=== PATIENT | female | born 1985 | race Caucasian/White ===

== ENCOUNTER 2017-01-15 10:39 | Inpatient (IN) | payer OTHER ==
[~2017-01-15 10:39] MED LIST: cefTRIAXone (Rocephin) 1 gm Inj ONE
[2017-01-15 10:48] VITALS: BMI 27.6
[2017-01-15] MEDS ORDERED: Sodium Chloride 0.9% 1,000 ML IV STA ×2 (11:40)
[2017-01-15 14:22] LABS: ALB/GLOB RATIO 1.3 (1.0-2.1); ALBUMIN 3.9 g/dL (3.5-5.0); ALT/SGPT 40 U/L (9-52); AST/SGOT 27 U/L (14-36); BLOOD UREA NITROGEN 10 mg/dl (7-17); CALCIUM 8.8 mg/dL (8.4-10.2); GFR AFRICAN-AMERICAN > 60; GFR NON-AFRICAN AMERICAN 58
[2017-01-15] MEDS ORDERED: Oxycodone/Acetaminophen 5/325 mg Tab ONE (14:49)
[2017-01-16] MEDS: Sodium Chloride 0.9% 1,000 ML IV SCH ×5 (01:30→21:24)
[2017-01-16 07:21] LABS: HEMOGLOBIN 11.7 g/dL (12.0-16.0); MEAN CELL VOLUME 89.9 fl (81.0-99.0); MEAN CORPUSCULAR HEMOGLOBIN 30.9 pg (27.0-31.0); MEAN CORPUSCULAR HGB CONC 34.3 g/dL (33.0-37.0); PLATELET COUNT 197 K/uL (130-400); RBC 3.81 Mil/uL (3.80-5.20); WHITE BLOOD COUNT 15.4 K/uL (4.8-10.8)
[2017-01-16 07:22] LABS: BASO % 0.1 % (0.0-2.0); EOS % 0.1 % (0.0-4.0); LYMPH % 5.1 % (20.0-40.0); MEAN PLATELET VOLUME 8.6 fl (7.2-11.7); MONO % 10.7 % (0.0-10.0)
[2017-01-16 07:23] LABS: LYMPH # 0.8 K/uL (1.0-4.3); MONO # 1.6 K/uL (0.0-0.8); NEUT # 12.9 K/uL (1.8-7.0); NRBC % 0.1 % (0.0-0.0)
[2017-01-16 07:26] LABS: BANDS 4 % (0-2); LARGE PLATELETS PRESENT; LYMPHOCYTE 8 % (20-50); MONOCYTE 9 % (0-10); MYELOCYTE 1 % (0-0); NEUTROPHIL 78 % (42-75); PLATELET ESTIMATE NORMAL (NORMAL); TOTAL CELLS COUNTED 100
[2017-01-16 08:54] LABS: HEMOGLOBIN 10.8 g/dL (12.0-16.0); MEAN CELL VOLUME 90.2 fl (81.0-99.0); MEAN CORPUSCULAR HEMOGLOBIN 31.1 pg (27.0-31.0); MEAN CORPUSCULAR HGB CONC 34.5 g/dL (33.0-37.0); RBC 3.46 Mil/uL (3.80-5.20); RED CELL DISTRIBUTION WIDTH 12.9 % (11.5-14.5); WHITE BLOOD COUNT 14.1 K/uL (4.8-10.8)
[2017-01-16 08:58] LABS: ALB/GLOB RATIO 1.1 (1.0-2.1); ALBUMIN 3.1 g/dL (3.5-5.0); ALT/SGPT 40 U/L (9-52); AST/SGOT 25 U/L (14-36); BLOOD UREA NITROGEN 10 mg/dl (7-17); CALCIUM 7.6 mg/dL (8.4-10.2); GFR AFRICAN-AMERICAN > 60; GFR NON-AFRICAN AMERICAN > 60
[2017-01-16] MEDS: cefTRIAXone 2 GM in Sodium Chloride 0.9% 100 ML IVPB SCH (09:47)
--- NOTE | 2017-01-16 12:08 | CP.PCM.PN ---
Subjective - Date & Time of Evaluation Date of Evaluation: 01/16/17 Time of Evaluation: 11:30 - Subjective Subjective: Pt had fever yesterday , no fever this morning still with bilat flank paimn, epigastric pain refused to eat this am bec she is worried she might vomit again vomited several times prior to coming to ED sl dysuria and suprapubic pain denies abnormal vaginal discharge no CP no SOB Objective - Vital Signs/Intake and Output Vital Signs (last 24 hours): Temp Pulse Resp BP Pulse Ox 98.3 F 84 20 113/69 98 01/16/17 08:22 01/16/17 08:22 01/16/17 08:22 01/16/17 08:22 01/16/17 08:22 - Medications Medications: Current Medications Acetaminophen (Tylenol 325mg Tab) 325 mg PO Q4 PRN PRN Reason: Pain, Mild (1-3) Bisacodyl (Dulcolax) 10 mg VA ONCE ONE Stop: 01/16/17 12:08 Sodium Chloride (Sodium Chloride 0.9%) 1,000 mls @ 150 mls/hr IV .Q6H40M [facility] Stop: 01/17/17 01:17 Last Admin: 01/16/17 08:25 Dose: Not Given Ceftriaxone Sodium 2 gm/ (Sodium Chloride) 100 mls @ 100 mls/hr IVPB DAILY [facility] Last Admin: 01/16/17 09:47 Dose: 100 mls/hr Morphine Sulfate (Morphine) 2 mg IVP Q4 PRN PRN Reason: Pain, moderate (4-7) Ondansetron HCl (Zofran Inj) 4 mg IVP Q4 PRN PRN Reason: Nausea/Vomiting Pantoprazole Sodium (Protonix Inj) 40 mg IVP ONCE ONE Stop: 01/16/17 12:08 - Labs Labs: 01/16/17 06:00 01/16/17 06:00 - Constitutional Appears: No Acute Distress - Head Exam Head Exam: NORMAL INSPECTION, NORMOCEPHALIC - Eye Exam Eye Exam: EOMI, Normal appearance, PERRL Pupil Exam: NORMAL ACCOMODATION - ENT Exam ENT Exam: Mucous Membranes Moist, Normal External Ear Exam - Neck Exam Neck Exam: Full ROM. absent: Meningismus - Respiratory Exam Respiratory Exam: NORMAL BREATHING PATTERN. absent: Respiratory Distress - Cardiovascular Exam Cardiovascular Exam: REGULAR RHYTHM, +S1, +S2 - GI/Abdominal Exam GI & Abdominal Exam: Soft, Tenderness Additional comments: diffuse mild tenderness + flank tenderness - Extremities Exam Extremities Exam: Full ROM, Normal Capillary Refill. absent: Calf Tenderness, Pedal Edema - Back Exam Back Exam: CVA tenderness (L), CVA tenderness (R), Full ROM. absent: paraspinal tenderness, vertebral tenderness - Neurological Exam Neurological Exam: Alert, Awake, CN II-XII Intact, Oriented x3 Neuro motor strength exam: Left Upper Extremity: 5, Right Upper Extremity: 5, Left Lower Extremity: 5, Right Lower Extremity: 5 - Psychiatric Exam Psychiatric exam: Normal Affect, Normal Mood - Skin Skin Exam: Dry, Normal Color, Warm Assessment and Plan (1) Sepsis Status: Acute (2) Pyelonephritis Status: Acute (3) Abdominal pain Status: Acute (4) DVT prophylaxis Status: Acute - Assessment and Plan (Free Text) Assessment: 31 y/o lady came to the ED because of fever, vomiting and abdominal pain. She was seen at an Urgent care and was diagnosed to have UTI - was presribed Cipro however her sxs persisted so she came to the ED. (1) Sepsis sec to UTI?Pyelonephritis Status: Acute Pt came in septic with fever 103, tachycardic to 124 , WBC ct =15k with bands Urinalysis Blood c/s Urine c/s start IV ceftriaxone (2) Pyelonephritis Status: Acute pt has flank pain and some CVA tenderness (3) Abdominal pain Status: Acute Pt had N/V and abd pain , prob ses to Pyelo however need to r/o other etiology for abd pain CT of abdomen and Pelvis (4) DVT prophylaxis Status: Acute Lovenox
[2017-01-16] MEDS ORDERED: Chlorhexidine Gluconate 1 APPL/PKT TP ONE (12:10)
[2017-01-16] MEDS ORDERED: Iohexol 240 (50 ml) PO ONE (13:54)
[2017-01-16] MEDS ORDERED: Iohexol 300 100 ML IJ ONE (15:28)
[2017-01-16] MEDS ORDERED: Sodium Chloride 0.9% 50 ML IV ONE (15:29)
[2017-01-16 16:05] LABS: SQUAMOUS EPITHIAL 1 /hpf (0-5); URINE BACTERIA RARE (<OCC); URINE BILIRUBIN NEGATIVE (NEGATIVE); URINE BLOOD NEGATIVE (NEGATIVE); URINE CLARITY CLEAR (Clear); URINE COLOR YELLOW (YELLOW); URINE GLUCOSE (UA) NEG (Normal); URINE LEUKOCYTE ESTERASE MOD Leu/uL (Negative); URINE NITRATE NEGATIVE (NEGATIVE); URINE PROTEIN NEGATIVE (NEGATIVE); URINE UROBILINOGEN 0.2-1.0 mg/dL (0.2-1.0)
--- NOTE | 2017-01-16 17:58 | CT ---
EXAM: CT Abdomen and Pelvis With Intravenous Contrast CLINICAL HISTORY: 31 years old, female; Pain and signs and symptoms; Nausea and vomiting; Abdominal pain; Generalized; Patient HX: HX of urinary tract infection; Additional info: Abd pain TECHNIQUE: Axial computed tomography images of the abdomen and pelvis with intravenous contrast. This CT exam was performed using one or more of the following dose reduction techniques: automated exposure control, adjustment of the mA and/or kV according to patient size, and/or use of iterative reconstruction technique. Coronal and sagittal reformatted images were created and reviewed. CONTRAST: 90 mL of [id number] administered intravenously. EXAM DATE/TIME: 01/16/2017 1:54 PM COMPARISON: There are no prior studies for comparison. FINDINGS: Lower thorax: Heart size is normal. There is a very small pericardial effusion. There are bilateral pleural effusions right greater than left. There is airspace disease at the lung bases right greater than left. ABDOMEN: Liver: There is fatty infiltration of the liver. Gallbladder and bile ducts: Gallbladder is distended. Common bile duct is unremarkable. Pancreas: unremarkable Spleen: unremarkable Adrenals: unremarkable Kidneys and ureters: There are bilateral renal parenchymal perfusion defects. Air is mild perinephric stranding and edema bilaterally There is no pelvocaliectasis or ureterectasis. Stomach and bowel: Stomach is incompletely distended. Rotation is normal. There is no obstruction. Appendix is unremarkable. There is mild terminal ileal wall thickening Colon is incompletely distended which limits evaluation. There is minimal diverticulosis there is mild rectal wall thickening and mucosal enhancement. Appendix: See stomach and bowel PELVIS: Bladder: Bladder is partially distended. Reproductive: Uterus and adnexal structures are unremarkable. ABDOMEN and PELVIS: Intraperitoneal space: There is a small amount of free fluid in the upper abdomen. There is fluid in Morison's pouch. There is pericholecystic fluid. There is a small amount of free fluid in the pelvis. No free air Bones/joints: There are no acute osseous abnormalities Soft tissues: There is minimal body wall edema Vasculature: Vascular structures are unremarkable. Lymph nodes: There is Shotty para-aortic adenopathy. IMPRESSION: Bilateral pleural effusions and basilar airspace disease atelectasis and/or infiltrate; trace pericardial effusion; small amount of ascites in the abdomen and pelvis; fatty liver; bilateral renal perfusion defects consistent with pyelonephritis; shotty para-aortic adenopathy; terminal ileal and rectal wall thickening, possible enterocolitis Additional findings as described above.
[2017-01-16] MEDS: metroNIDAZOLE 500mg/100ml NS 100 ML IVPB SCH (19:52)
[2017-01-16] MEDS: levoFLOXacin 500 mg in D5W 500 MG/100 ML BAG IVPB SCH (21:03)
[2017-01-17] MEDS: metroNIDAZOLE 500mg/100ml NS 100 ML IVPB SCH ×2 (00:36→08:55)
[2017-01-17 06:31] LABS: BASO % 0.2 % (0.0-2.0); EOS # 0.1 K/uL (0.0-0.7); EOS % 0.6 % (0.0-4.0); HEMOGLOBIN 10.3 g/dL (12.0-16.0); LYMPH # 1.5 K/uL (1.0-4.3); MEAN CELL VOLUME 90.1 fl (81.0-99.0); MEAN CORPUSCULAR HEMOGLOBIN 30.7 pg (27.0-31.0); MEAN CORPUSCULAR HGB CONC 34.1 g/dL (33.0-37.0); MEAN PLATELET VOLUME 8.9 fl (7.2-11.7); MONO # 0.9 K/uL (0.0-0.8); MONO % 7.7 % (0.0-10.0); NEUT # 9.7 K/uL (1.8-7.0); NEUT % 79.5 % (50.0-75.0); RBC 3.34 Mil/uL (3.80-5.20); RED CELL DISTRIBUTION WIDTH 13.3 % (11.5-14.5); WHITE BLOOD COUNT 12.2 K/uL (4.8-10.8)
[2017-01-17 06:36] LABS: BLOOD UREA NITROGEN 8 mg/dl (7-17); GFR AFRICAN-AMERICAN > 60; GFR NON-AFRICAN AMERICAN > 60
--- NOTE | 2017-01-17 06:56 | CARD ---
APPROVED REPORT EKG Measurement Heart [id number] <Conclusion> Sinus tachycardia Nonspecific T wave abnormality Abnormal ECG
[2017-01-17 08:07] VITALS: PULSE 66; O2SAT 99
[2017-01-17] MEDS: cefTRIAXone 2 GM in Sodium Chloride 0.9% 100 ML IVPB SCH (08:56)
[2017-01-17] MEDS ORDERED: Enoxaparin 40 mg Syringe SC SCH (09:00)
[2017-01-17] MEDS: levoFLOXacin 500 mg in D5W 500 MG/100 ML BAG IVPB SCH (10:35)
--- NOTE | 2017-01-17 11:25 | CP.PCM.PN ---
Objective - Vital Signs/Intake and Output Vital Signs (last 24 hours): Temp Pulse Resp BP Pulse Ox 98.0 F 66 17 124/84 99 01/17/17 08:07 01/17/17 08:07 01/17/17 08:07 01/17/17 08:07 01/17/17 08:07 - Medications Medications: Current Medications Acetaminophen (Tylenol 325mg Tab) 325 mg PO Q4 PRN PRN Reason: Pain, Mild (1-3) Last Admin: 01/16/17 20:00 Dose: 325 mg Enoxaparin Sodium (Lovenox) 40 mg SC DAILY [facility] PRN Reason: Protocol Last Admin: 01/17/17 08:56 Dose: 40 mg Famotidine (Pepcid) 20 mg PO BID [facility] Last Admin: 01/17/17 08:56 Dose: 20 mg Ceftriaxone Sodium 2 gm/ (Sodium Chloride) 100 mls @ 100 mls/hr IVPB DAILY [facility] Last Admin: 01/17/17 08:56 Dose: 100 mls/hr Metronidazole (Flagyl 500mg/100ml Ns) 100 mls @ 100 mls/hr IVPB Q8 [facility] Last Admin: 01/17/17 08:55 Dose: 100 mls/hr Levofloxacin/Dextrose (Levaquin 500mg) 500 mg in 100 mls @ 100 mls/hr IVPB DAILY [facility] Last Admin: 01/17/17 10:35 Dose: 100 mls/hr Ketorolac Tromethamine (Toradol) 30 mg IVP Q6 PRN PRN Reason: Pain, severe (8-10) Ketorolac Tromethamine (Toradol) 15 mg IVP Q6 PRN PRN Reason: Pain, moderate (4-7) Last Admin: 01/17/17 03:05 Dose: 15 mg Morphine Sulfate (Morphine) 2 mg IVP Q4 PRN PRN Reason: Pain, moderate (4-7) Last Admin: 01/16/17 12:10 Dose: 2 mg - Labs Labs: 01/17/17 05:30 01/17/17 05:30 Assessment and Plan - Assessment and Plan (Free Text) Assessment: 31 y/o ladroro came to the ED because of fever, vomiting and abdominal pain. She was seen at an Urgent care and was diagnosed to have UTI - was presribed Cipro however her sxs persisted so she came to the ED. (1) Sepsis sec to UTI?Pyelonephritis Status: Acute Pt came in septic with fever 103, tachycardic to 124 , WBC ct =15k with bands Urinalysis Blood c/s Urine c/s start IV ceftriaxone (2) Pyelonephritis Status: Acute pt has flank pain and some CVA tenderness (3) Abdominal pain Status: Acute Pt had N/V and abd pain , prob ses to Pyelo however need to r/o other etiology for abd pain CT of abdomen and Pelvis (4) DVT prophylaxis Status: Acute Lovenox
[2017-01-17 11:36] LABS: VENOUS BLOOD GAS BASE EXCESS 2.2 mmol/L (0.0-2.0); VENOUS BLOOD GAS PCO2 39 mmHg (40-60); VENOUS BLOOD GAS PO2 43 mm/Hg (30-55); VENOUS BLOOD PH 7.44 (7.32-7.43)
--- NOTE | 2017-01-17 13:40 | CP.PCM.CON ---
History of Present Illness - History of Present Illness History of Present Illness: 31 yo female [id number] with abdominal pain and burning with urination for one week. Was taking OTC meds and symptoms continued. Review of Systems - Constitutional Constitutional: Fever - EENT Eyes: absent: Blurred Vision Ears: absent: Decreased Hearing Nose/Mouth/Throat: absent: Epistaxis - Cardiovascular Cardiovascular: absent: Chest Pain - Respiratory Respiratory: absent: Dyspnea - Gastrointestinal Gastrointestinal: As Per HPI - Genitourinary Genitourinary: As Per HPI Past Patient History - Past Social History Smoking Status: Never Smoked - GENITOURINARY/GYNECOLOGICAL Hx Urinary Tract Infection: Yes - PSYCHIATRIC Hx Substance Use: No - SURGICAL HISTORY Hx Surgeries: No - ANESTHESIA Hx Anesthesia: No Meds Allergies/Adverse Reactions: Allergies Allergy/AdvReac Type Severity Reaction Status Date / Time No Known Allergies Allergy Verified 01/15/17 10:55 - Medications Medications: Current Medications Acetaminophen (Tylenol 325mg Tab) 325 mg PO Q4 PRN PRN Reason: Pain, Mild (1-3) Last Admin: 01/16/17 20:00 Dose: 325 mg Enoxaparin Sodium (Lovenox) 40 mg SC DAILY [facility] PRN Reason: Protocol Last Admin: 01/17/17 08:56 Dose: 40 mg Famotidine (Pepcid) 20 mg PO BID [facility] Last Admin: 01/17/17 08:56 Dose: 20 mg Ceftriaxone Sodium 2 gm/ (Sodium Chloride) 100 mls @ 100 mls/hr IVPB DAILY [facility] Last Admin: 01/17/17 08:56 Dose: 100 mls/hr Metronidazole (Flagyl 500mg/100ml Ns) 100 mls @ 100 mls/hr IVPB Q8 [facility] Last Admin: 01/17/17 08:55 Dose: 100 mls/hr Levofloxacin/Dextrose (Levaquin 500mg) 500 mg in 100 mls @ 100 mls/hr IVPB DAILY [facility] Last Admin: 01/17/17 10:35 Dose: 100 mls/hr Ketorolac Tromethamine (Toradol) 30 mg IVP Q6 PRN PRN Reason: Pain, severe (8-10) Ketorolac Tromethamine (Toradol) 15 mg IVP Q6 PRN PRN Reason: Pain, moderate (4-7) Last Admin: 01/17/17 03:05 Dose: 15 mg Morphine Sulfate (Morphine) 2 mg IVP Q4 PRN PRN Reason: Pain, moderate (4-7) Last Admin: 01/16/17 12:10 Dose: 2 mg Physical Exam - Constitutional Appears: Non-toxic - Head Exam Head Exam: ATRAUMATIC - Eye Exam Eye Exam: Normal appearance - ENT Exam ENT Exam: Mucous Membranes Moist - Neck Exam Neck exam: Positive for: Normal Inspection - Respiratory Exam Respiratory Exam: Clear to Auscultation Bilateral - Cardiovascular Exam Cardiovascular Exam: REGULAR RHYTHM, +S1, +S2 - GI/Abdominal Exam GI & Abdominal Exam: Normal Bowel Sounds, Soft, Tenderness Additional comments: Tender periumbillical and LLQ. noguarding or rebound. Results - Vital Signs Recent Vital Signs: Last Vital Signs Temp 98.0 F 01/17/17 08:07 Pulse 66 01/17/17 08:07 Resp 17 01/17/17 08:07 BP 124/84 01/17/17 08:07 Pulse Ox 99 01/17/17 08:07 - Labs Result Diagrams: 01/17/17 05:30 01/17/17 05:30 Labs: Laboratory Results - last 24 hr 01/16/17 01/16/17 01/17/17 15:43 16:26 05:30 WBC 12.2 H RBC 3.34 L Hgb 10.3 L Hct 30.1 L MCV 90.1 MCH 30.7 MCHC 34.1 RDW 13.3 Plt Count 198 MPV 8.9 Neut % (Auto) 79.5 H Lymph % (Auto) 12.0 L [place] % (Auto) 7.7 Eos % (Auto) 0.6 Baso % (Auto) 0.2 Neut # 9.7 H Lymph # 1.5 Bay # 0.9 H Eos # 0.1 Baso # 0.0 ESR 88 H Sodium Potassium Chloride Carbon Dioxide Anion Gap BUN Creatinine Est GFR ( Amer) Est GFR (Non-Af Amer) POC Glucose (mg/dL) 122 H Random Glucose Calcium C-React Prot High Sens Urine Color Yellow Urine Clarity Clear Urine pH 6.0 Ur Specific [place] 1.008 Urine Protein Negative Urine Glucose (UA) Neg Urine Ketones 20 Urine Blood Negative Urine Nitrate Negative Urine Bilirubin Negative Urine Urobilinogen 0.2-1.0 Ur Leukocyte Esterase Mod Urine RBC (Auto) 4 H Urine Microscopic WBC 19 H Ur Squamous Epith Cells 1 Urine Bacteria Rare 01/17/17 01/17/17 05:30 05:30 WBC RBC Hgb Hct MCV MCH MCHC RDW Plt Count MPV Neut % (Auto) Lymph % (Auto) [place] % (Auto) Eos % (Auto) Baso % (Auto) Neut # Lymph # Bay # Eos # Baso # ESR Sodium 142 Potassium 3.7 Chloride 110 H Carbon Dioxide 23 Anion Gap 13 BUN 8 Creatinine 0.7 Est GFR ( Amer) > 60 Est GFR (Non-Af Amer) > 60 POC Glucose (mg/dL) Random Glucose 116 H Calcium 8.0 L C-React Prot High Sens > 15.00 H Urine Color Urine Clarity Urine pH Ur Specific [place] Urine Protein Urine Glucose (UA) Urine Ketones Urine Blood Urine Nitrate Urine Bilirubin Urine Urobilinogen Ur Leukocyte Esterase Urine RBC (Auto) Urine Microscopic WBC Ur Squamous Epith Cells Urine Bacteria Assessment & Plan (1) Abdominal pain Assessment and Plan: CT suggest both pyelonephritis or enterocolitis. Each should respond to broad spectrum antibiotics. Continue antibiotics and as long as patient improves, no need for antibiotics. Bentyl started for abdominal pain. Status: Acute
--- NOTE | 2017-01-17 14:56 | CARD ---
APPROVED REPORT EXAM: Two-dimensional and M-mode echocardiogram with Doppler and color Doppler. Other Information Quality : ExcellentRhythm : NSR INDICATION Pericardial Effusion 2D DIMENSIONS IVSd0.86 (0.7-1.1cm)LVDd4.55 (3.9-5.9cm) LVOT Diameter1.57 (1.8-2.4cm)PWd1.08 (0.7-1.1cm) IVSs1.06 (0.8-1.2cm)LVDs3.22 (2.5-4.0cm) FS (%) 29.2 %PWs1.17 (0.8-1.2cm) M-Mode DIMENSIONS Left Atrium (MM)4.15 (2.5-4.0cm)IVSd0.82 (0.7-1.1cm) Aortic Root2.53 (2.2-3.7cm)LVDd5.15 (4.0-5.6cm) Aortic Cusp Exc.1.97 (1.5-2.0cm)PWd0.82 (0.7-1.1cm) IVSs1.26 cmFS (%) 39 % LVDs3.12 (2.0-3.8cm)PWs1.41 cm Mitral Valve MV E Kcxkwnad849.0cm/sMV DECEL [id number] A Xrmswwck81.7cm/s MV VWQ08bwB/A ratio3.1MVA (PHT)3.47cm2 TDI Lateral E' Peak V15.24cm/sMedial E' Peak V13.53cm/sE/Lateral E'7.3 E/Medial E'8.3 Pulmonary Valve PV Peak Hrhpskuh356.5cm/s LEFT VENTRICLE The left ventricle is normal size. There is normal left ventricular wall thickness. The left ventricular function is normal. The left ventricular ejection fraction is within the normal range. The Ejection Fraction is 65-70%. There is normal LV segmental wall motion. The left ventricular diastolic function is normal. No left ventricle thrombus noted on this study. There is no mass noted in the left ventricle. RIGHT VENTRICLE The right ventricle is normal size. There is normal right ventricular wall thickness. The right ventricular systolic function is normal. ATRIA The left atrium size is normal. The right atrium size is normal. The interatrial septum is intact with no evidence for an atrial septal defect. AORTIC VALVE The aortic valve is normal in structure and function. No aortic regurgitation is present. There is no aortic valvular stenosis. There is no aortic valvular vegetation. MITRAL VALVE The mitral valve is normal in structure and function. There is no evidence of mitral valve prolapse. There is no mitral valve stenosis. There is no mitral valve regurgitation noted. TRICUSPID VALVE The tricuspid valve is normal in structure and function. There is no tricuspid valve regurgitation noted. There is no tricuspid valve prolapse or vegetation. There is no tricuspid valve stenosis. PULMONIC VALVE The pulmonary valve is normal in structure and function. There is no pulmonic valvular regurgitation. There is no pulmonic valvular stenosis. GREAT VESSELS The aortic root is normal in size. The IVC is normal in size and collapses >50% with inspiration. PERICARDIAL EFFUSION The pericardium appears normal. There is no pleural effusion. <Conclusion> The left ventricle is normal size. The left ventricular function is normal. The left ventricular ejection fraction is within the normal range. The Ejection Fraction is 65-70%.
--- NOTE | 2017-01-17 15:30 | CP.PCM.DIS ---
Provider - Provider Date of Admission: 01/15/17 15:00 Attending physician: Darci Hatfield MD Consults: Gastroenterology Time Spent in preparation of Discharge (in minutes): 20 Hospital Course - Lab Results Lab Results: Most Recent Lab Values WBC 12.2 K/uL (4.8-10.8) H 01/17/17 05:30 RBC 3.34 Mil/uL (3.80-5.20) L 01/17/17 05:30 Hgb 10.3 g/dL (12.0-16.0) L 01/17/17 05:30 Hct 30.1 % (34.0-47.0) L 01/17/17 05:30 MCV 90.1 fl (81.0-99.0) 01/17/17 05:30 MCH 30.7 pg (27.0-31.0) 01/17/17 05:30 MCHC 34.1 g/dL (33.0-37.0) 01/17/17 05:30 RDW 13.3 % (11.5-14.5) 01/17/17 05:30 Plt Count 198 K/uL (130-400) 01/17/17 05:30 MPV 8.9 fl (7.2-11.7) 01/17/17 05:30 Neut % (Auto) 79.5 % (50.0-75.0) H 01/17/17 05:30 Lymph % (Auto) 12.0 % (20.0-40.0) L 01/17/17 05:30 [place] % (Auto) 7.7 % (0.0-10.0) 01/17/17 05:30 Eos % (Auto) 0.6 % (0.0-4.0) 01/17/17 05:30 Baso % (Auto) 0.2 % (0.0-2.0) 01/17/17 05:30 Neut # 9.7 K/uL (1.8-7.0) H 01/17/17 05:30 Lymph # 1.5 K/uL (1.0-4.3) 01/17/17 05:30 [place] # 0.9 K/uL (0.0-0.8) H 01/17/17 05:30 Eos # 0.1 K/uL (0.0-0.7) 01/17/17 05:30 Baso # 0.0 K/uL (0.0-0.2) 01/17/17 05:30 Neutrophils % (Manual) 78 % (42-75) H 01/15/17 11:45 Band Neutrophils % 4 % (0-2) H 01/15/17 11:45 Lymphocytes % (Manual) 8 % (20-50) L 01/15/17 11:45 Monocytes % (Manual) 9 % (0-10) 01/15/17 11:45 Myelocytes % 1 % (0-0) H 01/15/17 11:45 Platelet Estimate Normal (NORMAL) 01/15/17 11:45 Large Platelets Present 01/15/17 11:45 ESR 88 mm/hr (0-20) H 01/17/17 05:30 pO2 43 mm/Hg (30-55) 01/15/17 11:40 VBG pH 7.44 (7.32-7.43) H 01/15/17 11:40 VBG pCO2 39 mmHg (40-60) L 01/15/17 11:40 VBG HCO3 26.3 mmol/L 01/15/17 11:40 VBG Total CO2 27.7 mmol/L (22-28) 01/15/17 11:40 VBG O2 Sat (Calc) 85.3 % (40-65) H 01/15/17 11:40 VBG Base Excess 2.2 mmol/L (0.0-2.0) H 01/15/17 11:40 VBG Potassium 3.7 mmol/L (3.6-5.2) 01/15/17 11:40 Sodium 138.0 mmol/L (132-148) 01/15/17 11:40 Chloride 106.0 mmol/L (98-107) 01/15/17 11:40 Glucose 133 mg/dL (65-105) H 01/15/17 11:40 Lactate 1.1 mmol/L (0.7-2.1) 01/15/17 11:40 FiO2 21.0 % 01/15/17 11:40 Sodium 142 mmol/l (132-148) 01/17/17 05:30 Potassium 3.7 MMOL/L (3.6-5.0) 01/17/17 05:30 Chloride 110 mmol/L (98-107) H 01/17/17 05:30 Carbon Dioxide 23 mmol/L (22-30) 01/17/17 05:30 Anion Gap 13 (10-20) 01/17/17 05:30 BUN 8 mg/dl (7-17) 01/17/17 05:30 Creatinine 0.7 mg/dL (0.7-1.2) 01/17/17 05:30 Est GFR ( Amer) > 60 01/17/17 05:30 Est GFR (Non-Af Amer) > 60 01/17/17 05:30 POC Glucose (mg/dL) 122 mg/dL (65-110) H 01/16/17 16:26 Random Glucose 116 mg/dL (65-105) H 01/17/17 05:30 Calcium 8.0 mg/dL (8.4-10.2) L 01/17/17 05:30 Total Bilirubin 0.4 mg/dl (0.2-1.3) 01/16/17 06:00 AST 25 U/L (14-36) 01/16/17 06:00 ALT 40 U/L (9-52) 01/16/17 06:00 Alkaline Phosphatase 72 U/L (38-126) 01/16/17 06:00 C-React Prot High Sens > 15.00 mg/L (1.00-3.00) H 01/17/17 05:30 Total Protein 5.9 G/DL (6.3-8.2) L 01/16/17 06:00 Albumin 3.1 g/dL (3.5-5.0) L D 01/16/17 06:00 Globulin 2.8 gm/dL (2.2-3.9) 01/16/17 06:00 Albumin/Globulin Ratio 1.1 (1.0-2.1) 01/16/17 06:00 Venous Blood Potassium 3.7 mmol/L (3.6-5.2) 01/15/17 11:40 Urine Color Yellow (YELLOW) 01/16/17 15:43 Urine Clarity Clear (Clear) 01/16/17 15:43 Urine pH 6.0 (5.0-8.0) 01/16/17 15:43 Ur Specific [place] 1.008 (1.003-1.030) 01/16/17 15:43 Urine Protein Negative mg/dL (NEGATIVE) 01/16/17 15:43 Urine Glucose (UA) Neg mg/dL (Normal) 01/16/17 15:43 Urine Ketones 20 mg/dL (NEGATIVE) 01/16/17 15:43 Urine Blood Negative (NEGATIVE) 01/16/17 15:43 Urine Nitrate Negative (NEGATIVE) 01/16/17 15:43 Urine Bilirubin Negative (NEGATIVE) 01/16/17 15:43 Urine Urobilinogen 0.2-1.0 mg/dL (0.2-1.0) 01/16/17 15:43 Ur Leukocyte Esterase Mod Saira/uL (Negative) 01/16/17 15:43 Urine RBC (Auto) 4 /hpf (0-3) H 01/16/17 15:43 Urine Microscopic WBC 19 /hpf (0-5) H 01/16/17 15:43 Ur Squamous Epith Cells 1 /hpf (0-5) 01/16/17 15:43 Urine Bacteria Rare (<OCC) 01/16/17 15:43 - Hospital Course Hospital Course: 31 y/o lady came to the ED because of fever, vomiting and abdominal pain. She was seen at an Urgent care and was diagnosed to have UTI - was presribed Cipro however her sxs persisted so she came to the ED.She was found to be febrile with Tmax 103, tachycardic WBC [address] abdomen showed pyelonephritis and terminal ileal and rectal wall thickening, possible enterocolitis. She was admitted with sepsis secondary to pyelonephritis , started on IVF and Iv Levaquine, rocephin and flagyl Urine cultures positive for gram negative , blood cx with no growth. patient clinically improving, afebrile for last 24 hours , WBC trended down from 15 K - - 12 K and patient would like to go home Will discharge patient on Cipro and flagyl PO for 7 days Famotidine for gastritis and bentyl for 1. Sepsis sec to UTI?Pyelonephritis Acute Pt came in septic with fever 103, tachycardic to 124 , WBC ct =15k with bands Urinalysis positive for gram negative suki Blood c/s with no growth received Rocephin , Levaquine and Flagyl 2.Pyelonephritis Acute pt has flank pain and some CVA tenderness 3. Enterocolitis Acute will d/c on Cipro and Flagyl 4. Anemia most likely dilutional Discharge Exam - Head Exam Head Exam: ATRAUMATIC, NORMAL INSPECTION, NORMOCEPHALIC - Eye Exam Eye Exam: EOMI, Normal appearance, PERRL Pupil Exam: NORMAL ACCOMODATION - ENT Exam ENT Exam: Mucous Membranes Moist, Normal Exam - Neck Exam Neck exam: Full Rom, Normal Inspection - Respiratory Exam Respiratory Exam: Clear to PA & Lateral, NORMAL BREATHING PATTERN. absent: Rales, Rhonchi, Wheezes - Cardiovascular Exam Cardiovascular Exam: REGULAR RHYTHM, RRR, +S1, +S2. absent: JVD - GI/Abdominal Exam GI & Abdominal Exam: Normal Bowel Sounds, Soft. absent: Distended, Guarding, Rebound, Tenderness - Rectal Exam Rectal Exam: Deferred - Extremities Exam Extremities exam: normal capillary refill, normal inspection, pedal pulses present - Back Exam Back exam: NORMAL INSPECTION - Neurological Exam Neurological exam: Alert, CN II-XII Intact, Oriented x3, Reflexes Normal - Psychiatric Exam Psychiatric exam: Normal Affect, Normal Mood - Skin Skin Exam: Dry, Intact, Normal Color, Warm Discharge Plan - Discharge Medications Prescriptions: Ciprofloxacin HCl [Cipro] 500 mg PO BID #14 tablet RX: Dicyclomine [Bentyl] 10 mg PO QID #20 cap RX: Famotidine [Pepcid] 20 mg PO BID #20 tab Metronidazole [Flagyl] 500 mg PO Q8 #21 tablet - Follow Up Plan Condition: STABLE Disposition: HOME/ ROUTINE Patient education suggested?: Yes Instructions: Acute Pyelonephritis (DC) Referrals: [facility] [place] [Outside]
[2017-01-17 16:00] VITALS: BP 128/87; RESP 18; TEMP 98.1
== END 2017-01-17 16:16 | disposition home or self-care (01) | DRG 901 ==
LOC: H.ER 10:39 → H.MEDSURG1 15:00 → UNDOADMIN 20:59
DX: A41.9 Sepsis, unspecified organism (principal); N10 Acute pyelonephritis; B96.20 Unspecified Escherichia coli [E. coli] as the cause of diseases classified elsewhere; K52.9 Noninfective gastroenteritis and colitis, unspecified; K29.70 Gastritis, unspecified, without bleeding; D64.9 Anemia, unspecified